=== PATIENT | male | born 1990 | race Caucasian/White ===

== ENCOUNTER 2021-07-22 20:19 | Observation (INO) | payer BC ==
[~2021-07-22] VITALS: Ht 177.8 cm; Wt 100.7 kg
[2021-07-22 22:53] VITALS: BP 176/101; PULSE 96; TEMP 98.9
[2021-07-23] VITALS (11 sets, daily range): BP systolic 118–176; BP diastolic 76–99; PULSE 97–128; TEMP 98–98.5
--- NOTE | 2021-07-23 01:51 | NUR ---
PATIENT TO ROOM 322. ALERT AND ORIENTED. MED RX COMPLETED, PATIENT CURRENTLY TAKES NO MEDS BUT WAS SUPPOSED TO START NEW ONES TODAY BUT HAS NOT TAKENT THEM. ADMISSION ASSESSMENTS COMPLETED. C/O MILD PAIN, PRN MORPHINE GIVEN. LR TO R FA IV. SCORED 4 ON DETOX SCALE AND WAS DOSED WITH ATIVAN PER ORDER. TOLERATED SOME CLEARS BUT IS NOW NPO.
--- NOTE | 2021-07-23 06:45 | NUR ---
Pt was sleeping upon entering room, woke easily. Assessment complete and informed pt he would be going to surgery soon. Pt denies having any questions, pain tolerable at this time.
--- NOTE | 2021-07-23 07:08 | NUR ---
Pt off the floor for surgery
--- NOTE | 2021-07-23 09:20 | NUR ---
Pt back from surgery. He is alert and oriented with mild pain complaints. Bandaids x3 to abd that are CDI. Educated him on post op care and diet. Pt tolerating ice water. Also gave him some jello and toast.
--- NOTE | 2021-07-23 11:41 | NUR ---
Pt doing well. He has been up and voided. He was steady on his feet. Pt has ordered some lunch.
--- NOTE | 2021-07-23 11:46 | NUR ---
wireworker met with patient to complete intake and discuss discharge plan. Patient lives at home alone in [place]. He reports to being fully independent with his ADL's and does not utilize any DME to assist with mobility. Patient has no home oxygen needs. Patient states that he does not have a PCP and is not interested in establishing with anyone at the moment. He states that he is about to move to [place] and will establish there. He normally utilizes [facility] in [place] for medications but states that if he is sent home with anything from here, he would like it sent to the [facility] in [facility]. Patient does not have a [facility] established. Education provided. He has never been and has no children. His established legal next of kin is his mother Rashaun ([phone]). Patient is planning on returning home once medically ready. Discharge plan: Home
--- NOTE | 2021-07-23 12:47 | NUR ---
Pt continues to do well. PRN pain medication given recently. Pt has tolerated a general diet with no complaints of N/V.
[2021-07-23] MEDS ORDERED: NORCO 325 MG-51 TAB PO (14:04)
--- NOTE | 2021-07-23 14:50 | NUR ---
Reviewed discharge instructions with pt to include follow up appointment, prescription, activity and stopping drinking. Pt verbalized understanding. INT removed from right forearm. Informed pt to notify nursing when he is ready to leave so that we can escort him out
== END 2021-07-23 15:15 | disposition home or self-care (01) ==
LOC: SURG 20:19
PROVIDERS: ADMIT Surgery
DX: K35.80 Unspecified acute appendicitis (principal); F17.290 Nicotine dependence, other tobacco product, uncomplicated; F10.10 Alcohol abuse, uncomplicated
CPT/HCPCS: G0378; J0295; J0330; J0360; J0690; J1100; J1170; J2060; J2270; J2405; J2704; J3010; J7120